=== PATIENT | male | born 1965 | race Caucasian/White ===

== ENCOUNTER 2018-08-09 06:52 | Day surgery (SDC) | payer OTHER ==
[2018-08-09] MEDS ORDERED: Morphine 4 MG/ML VIAL ONE (07:29)
[2018-08-09] MEDS ORDERED: Ondansetron PF 4 MG/2 ML Vial ONE ×2 (07:30→10:51)
[2018-08-09 07:34] LABS: #Basophils 0.1 thou/uL (0.0-0.2); #Eosinphils 0.2 thou/uL (0.0-0.7); #Lymphocytes 2.4 thou/uL (1.20-3.40); #Monocytes 0.4 thou/uL (0.11-0.59); #Neutrophils 3.6 thou/uL (1.40-6.50); %Basophils 0.8 % (0.0-1.0); %Eosinophils 2.4 % (0.0-10.0); %Lymphocytes 36.5 % (21.0-51.0); %Monocytes 5.6 % (0.0-10.0); %Neutrophils 54.6 % (42.0-75.0); Hemoglobin 16.3 g/dL (14.0-18.0); Mean Corpuscular HGB CONC 33.4 g/dL (32.0-36.0); Mean Corpuscular Hemoglobin 31.6 pg (27.0-31.0); Mean Corpuscular Volume 94.5 fL (78.0-98.0); Mean Platelet Volume 7.4 fL (7.4-10.4); Platelet Count 251 thou/uL (130-400); RBC Distribution Width 11.9 % (11.5-14.5); Red Blood Cell (RBC) Count 5.17 mill/uL (4.70-6.10); White Blood Cell (WBC) Count 6.6 thou/uL (4.8-10.8)
--- NOTE | 2018-08-09 07:50 | CT ---
CTA OF THE ABDOMEN AND PELVIS UTILIZING AORTIC DISSECTION PROTOCOL WITH 3D REFORMATTED IMAGING: INDICATION: History of abdominal pain in the paraumbilical region that began this morning and has worsened. COMPARISON: None. FINDINGS: No acute aortic stenosis, occlusion, or aneurysmal formation is demonstrated. There is mild vascular calcification involving the iliac arteries bilaterally. No definite central pulmonary embolus is ev ident. The celiac, SMA, and renal arteries are patent. 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 The MITCHEL is patent. No enlarged lymph nodes are seen within the mediastinum, hilar, or axillary regions. No suspicious pulmonary nodule, pleural effusion, or pneumothorax is evident. There is fatty infiltration of the liver. The pancreas, adrenal glands, and left kidney are normal-appearing. There is a 2.8 cm cyst within th e superior pole of the right kidney. No enlarged lymph nodes are evident. There is a paraumbilical hernia containing a loop of small ingrid l with dilatation of the small bowel and surrounding fluid in the hernia sac suspicious for changes o f strangulation. No upstream dilatation is evident within the small bowel. There is a normal append ix in the right lower quadrant of the abdomen. Unopacified colon is within normal limits. No acute osseous abnormality is evident. IMPRESSION: 1. Paraumbilical hernia containing a loop of small bowel with associated fluid in the hernia sac fatemeh picious for changes of early strangulation. No upstream dilatation is evident involving the small lilly wel to suggest obstruction. 2. No acute aortic stenosis, occlusion, or aneurysmal formation. 3. No central pulmonary embolus. 4. No acute cardiopulmonary abnormality. 5. Fatty liver. 6. Right renal cyst. POS: [facility]
[2018-08-09 07:55] LABS: ALT (SGPT) 28 U/L (8-55); AST (SGOT) 45 U/L (5-34); Albumin 4.1 g/dL (3.5-5.0); Alkaline Phosphatase 56 U/L (40-150); Anion Gap 15 mmol/L (10-20); BUN (Urea Nitrogen) 10 mg/dL (8.4-25.7); Bilirubin, Total 0.7 mg/dL (0.2-1.2); Calc. Creatinine Clearance 0 mL/min (70-130); Calcium 9.7 mg/dL (7.8-10.44); Carbon Dioxide 23 mmol/L (22-29); Chloride 103 mmol/L (98-107); Estimated GFR-MDRD 68; Globulin 3.6 g/dL (2.4-3.5); Glucose 105 mg/dL (70-105); Lipase 50 U/L (8-78); Potassium 3.8 mmol/L (3.5-5.1); Protein, Total 7.7 g/dL (6.0-8.3); Sodium 137 mmol/L (136-145)
[2018-08-09] MEDS ORDERED: Bupivacaine/Epinephrine 0.25% 30 ML VIAL ONE (08:38)
[2018-08-09] MEDS ORDERED: Ketorolac Tromethamine 30 MG/ML VIAL ONE (08:45)
[2018-08-09] MEDS ORDERED: Famotidine/PF 20 mg/2ml Vial ONE (08:45)
[2018-08-09] MEDS ORDERED: Fentanyl 100 MCG/2 ML VIAL ONE ×4 (08:45→12:57)
--- NOTE | 2018-08-09 09:00 | HP ---
HISTORY: A 52-year-old man presented to emergency department with acute onset periumbilical abdominal pain, which started at 0400 hours, associated with nonreducible periumbilical bulge. He has never experienced pain like this before. He is a retired [employer], who now rates his pain at 10/10. He denies any fevers or chills. He admits to some nausea, but no emesis. Last bowel movement and flatus were yesterday. PAST MEDICAL HISTORY: Has no previous medical problems. PAST SURGICAL HISTORY: He has no significant abdominal or chest surgeries. He has had minor surgeries to his limb including childhood tonsillectomy and adenoidectomy. SOCIAL HISTORY: He served in the in the [employer], now retired. Denies any cigarette smoking, ethanol, or illicit drug abuse. PRE-HOSPITAL MEDICATIONS: Include, 1. Clonazepam 0.5 mg p.o. p.r.n. 2. He also takes Ambien 10 mg p.o. at bedtime p.r.n. insomnia. FAMILY HISTORY: Denies any family history of diabetes mellitus, heart disease, essential hypertension, or cancer. REVIEW OF SYSTEMS: Ten-point review of systems essentially unremarkable except as stated in past medical history and chief complaint. PHYSICAL EXAMINATION: GENERAL: This reveals a 52-year-old normally developed man, who is otherwise coherent and interactive and appears stated age. The patient is alert and oriented x3. Appears to be in acute distress secondary to severe abdominal pain. VITAL SIGNS: Today include blood pressure 170/113, pulse 71, respiratory rate is 23, temperature is 97.5 degrees Fahrenheit, oxygen saturation is 99% on room air. He rates his pain 10/10. HEENT: Reveals normocephalic and atraumatic. Pupils are equal, round, reactive to light and accommodation. Extraocular muscles are intact bilaterally. No scleral icterus present. HEART: Reveals regular rate and rhythm. No murmurs or gallops auscultated. LUNGS: Clear to auscultation bilaterally. Breathing, regular and nonlabored. ABDOMEN: Soft with a 3 x 4 cm periumbilical bulge, which is exquisitely tender with light touch. He has no rebound tenderness present. Liver and spleen nonpalpable below costal margin. NEUROLOGIC: Reveals no focal deficits present. LABORATORY FINDINGS: Today includes a CBC with 6600 white blood cells, hemoglobin and hematocrit 16.3 and 48.8 respectively, and platelet count is 251,000. Metabolic profile; sodium 137, potassium 3.8, chloride is 103, bicarb is 23, BUN is 10, creatinine is 1.13, glucose 105. AST and ALT noted at 45 and 28 respectively. Total bilirubin normal at 0.7. Serum lipase is also normal at 50. DIAGNOSTIC DATA: I have personally reviewed the CT scan of the abdomen and pelvis, which is remarkable for paraumbilical hernia containing a loop of small bowel which is trapped within the hernia sac. There is associated stranding. IMPRESSION: Acute incarcerated, likely strangulated umbilical hernia with acute small-bowel obstruction. PLAN: Urgent umbilical herniorrhaphy with mesh. Above findings and plan were discussed with the patient who indicates understanding information given. I have answered his questions. The patient is informed that if the bowel is indeed strangulated and nonviable, this may necessitate a small bowel resection with primary anastomosis, which may involve a bigger incision. The patient indicates understanding information given today. I have answered his questions. Job ID: [id number]
[2018-08-09] MEDS ORDERED: ISOVUE-370 76%-LOCM 1 ML ONE (09:45)
[2018-08-09] MEDS ORDERED: Dexamethasone 20 MG/5 ML VIAL ONE (10:51)
[2018-08-09] MEDS ORDERED: Succinylcholine Chloride 20 MG/ML 10 ml SYRINGE FS ONE (10:51)
[2018-08-09] MEDS ORDERED: Rocuronium Bromide 10 MG/ML (10ML VIAL) ONE (10:51)
[2018-08-09] MEDS ORDERED: ePHEDrine 50 MG/ML VIAL ONE (10:51)
[2018-08-09] MEDS ORDERED: PROPOFOL 200 MG/20 ML VIAL ONE (10:51)
[2018-08-09] MEDS ORDERED: Glycopyrrolate 0.2 MG/ML 5 ML SYRINGE ONE (10:51)
[2018-08-09] MEDS ORDERED: Lidocaine 1% PF 5 ML VIAL ONE (10:51)
--- NOTE | 2018-08-09 13:23 | OP ---
DATE OF PROCEDURE: 08/09/2018 PREOPERATIVE DIAGNOSIS: Acute incarcerated umbilical hernia with small-bowel obstruction. POSTOPERATIVE DIAGNOSIS: Acute incarcerated umbilical hernia with small-bowel obstruction. OPERATION PERFORMED: Repair of incarcerated umbilical hernia with [address] hernia patch. ANESTHESIA: General endotracheal. ESTIMATED BLOOD LOSS: 30 mL. FLUIDS GIVEN: 1600 mL crystalloids. COUNTS: Sponge and instrument counts were verified as correct x2. COMPLICATIONS: None apparent at the time of operation. INDICATIONS FOR OPERATION: This is a 52-year-old man, who presented with acute onset of periumbilical severe abdominal pain associated with nonreducible umbilical bulge. Clinical radiographic examination was consistent with acute incarcerated umbilical hernia with acute small-bowel obstruction. The patient was brought to the operating room for hernia repair. Findings are consistent with 2.5 cm umbilical hernia defect and no evidence of small bowel strangulation as there was no hemorrhagic ascites. The incarcerated small bowel had reduced at induction. DESCRIPTION OF PROCEDURE: Informed consent was obtained from the patient and he was brought to the operating room and placed in supine position. Following general anesthesia, the abdomen was sterilely prepped and draped in usual fashion. A curvilinear infraumbilical incision was made using a 15 scalpel. The incision was carried through subcutaneous tissues, maintaining hemostasis using cautery. Incision was carried down to the level of the fascia. The umbilical stalk and hernia sac were dissected off the ely shoshone fascia. Umbilical stalk was then dissected off the hernia sac. Hernia sac was opened and peritoneal cavity was inspected. No hemorrhagic ascites was present. At this juncture, an [address] hernia patch was brought into the operative field and inserted into the peritoneal cavity, securing this circumferentially to ely shosh[place] fascia using 2-0 Prolene sutures. [place] fascia was approximated using interrupted sutures of 0 Vicryl. Subcutaneous tissue was irrigated clear with saline solution noting good hemostasis in place. The umbilical stalk was reattached to ely shoshone fascia using interrupted sutures of 3-0 Vicryl. Deep tissues approximated using interrupted sutures of 3-0 Vicryl. Skin was closed using a running stitch of 4-0 Monocryl suture in subcuticular fashion. Dermabond was applied over incisional closure. The patient tolerated the operation without any apparent complication and was returned to recovery room in satisfactory condition. Job ID: [id number]
[2018-08-09] MEDS ORDERED: HYDROcodone/Acetaminophen 5/325 mg Tablet ONE (15:15)
== END 2018-08-09 16:45 | disposition home or self-care (01) ==
LOC: ERS 06:52 → SDC/OP 08:27
PROVIDERS: ATTEND Surgery
PROC: 0WUF0JZ Supplement Abdominal Wall with Synthetic Substitute, Open Approach (ICD-10-PCS; principal; 2018-08-09)
DX: K42.0 Umbilical hernia with obstruction, without gangrene (principal); G47.00 Insomnia, unspecified
CPT/HCPCS: 71275; 80053; 83690; 85025; 93005; 96361; 96374; 96375; C1781; J0131; J1100; J1885; J2001; J2270; J2405; J2704; J3010; J3490; Q9966; S0028

== ENCOUNTER 2019-02-13 09:46 | Observation (INO) | payer OTHER ==
[2019-02-13 10:15] LABS: #Basophils 0.1 thou/uL (0.0-0.2); #Eosinphils 0.1 thou/uL (0.0-0.7); #Lymphocytes 3.1 thou/uL (1.20-3.40); #Monocytes 0.6 thou/uL (0.11-0.59); #Neutrophils 3.1 thou/uL (1.40-6.50); %Basophils 1.4 % (0.0-1.0); %Eosinophils 2.1 % (0.0-10.0); %Lymphocytes 44.2 % (21.0-51.0); %Monocytes 8.2 % (0.0-10.0); %Neutrophils 44.1 % (42.0-75.0); Hemoglobin 16.4 g/dL (14.0-18.0); Mean Corpuscular HGB CONC 34.7 g/dL (32.0-36.0); Mean Corpuscular Hemoglobin 31.9 pg (27.0-31.0); Mean Platelet Volume 7.7 fL (7.4-10.4); Platelet Count 234 thou/uL (130-400); RBC Distribution Width 12.4 % (11.5-14.5); Red Blood Cell (RBC) Count 5.13 mill/uL (4.70-6.10)
--- NOTE | 2019-02-13 10:23 | RAD ---
EXAM: Chest PA and lateral: HISTORY: Chest pain, midsternal COMPARISON: None FINDINGS: Heart size:Within normal limits. Lungs:Clear of acute process. No confluent pneumonia, overt edema, pleural effusion, or other acute process. IMPRESSION: No significant acute intrathoracic disease.
[2019-02-13 10:38] LABS: ALT (SGPT) 25 U/L (8-55); AST (SGOT) 52 U/L (5-34); Albumin 4.7 g/dL (3.5-5.0); Alkaline Phosphatase 55 U/L (40-150); Anion Gap 17 mmol/L (10-20); BUN (Urea Nitrogen) 16 mg/dL (8.4-25.7); CK (CPK) 312 U/L (30-200); Calc. Creatinine Clearance 0 mL/min (70-130); Calcium 10.2 mg/dL (7.8-10.44); Carbon Dioxide 22 mmol/L (22-29); Chloride 103 mmol/L (98-107); Estimated GFR-MDRD 71; Globulin 3.7 g/dL (2.4-3.5); Glucose 73 mg/dL (70-105); Potassium 3.6 mmol/L (3.5-5.1); Protein, Total 8.4 g/dL (6.0-8.3); Sodium 138 mmol/L (136-145)
[2019-02-13] MEDS ORDERED: Aspirin Chewable 81 MG TAB ONE (10:46)
[2019-02-13 14:01] LABS: Troponin I Less than 0.010 ng/mL (< 0.028)
[2019-02-13] MEDS ORDERED: Ondansetron PF 4 MG/2 ML Vial IVP PRN (14:36)
[2019-02-13] MEDS ORDERED: Ondansetron ODT 4 MG TAB SL PRN (14:36)
[2019-02-13 14:56] VITALS: BMI 26.2
[2019-02-13] MEDS ORDERED: Acetaminophen 325 MG TAB PO PRN (16:39)
[2019-02-13] MEDS ORDERED: Senokot S 8.6-50 MG TAB PO PRN (16:39)
[2019-02-13] MEDS ORDERED: HYDROcodone/Acetaminophen 5/325 mg Tablet PO PRN (16:39)
[2019-02-13 16:42] LABS: Troponin I Less than 0.010 ng/mL (< 0.028)
--- NOTE | 2019-02-13 18:14 | HP ---
PRIMARY CARE PHYSICIAN: Dr. Jeffers. REASON FOR ADMISSION: Chest pain. HISTORY OF PRESENT ILLNESS: Mr. Jarrett is a 53-year-old man, who reported to the emergency room today for chest pain while at work today, reports that he was walking out of the meeting when he started having substernal chest pain that lasted a couple of minutes and then spontaneously went away. He had some shortness of breath with it, but denied any nausea or diaphoresis. The patient states he was a little dizzy, lightheaded during the incident. The patient denies any cough, fever, urinary complaints, or lower leg edema. Denies any numbness or tingling. He also denies any family history of any cardiac or stroke illnesses. The patient states he has been outside working in the heat over the last several days. Evaluation in the ER, the EKG, beats per minute 58, incomplete right bundle-branch block, ST segments and T-waves were normal. Troponin x2 undetectable. Lab work mostly unremarkable did have an AST of 52, CK of 312, globulin 3.7. Chest x-ray was also negative for any acute findings. The patient admitted to the observation unit for further risk stratification. REVIEW OF SYSTEMS: Denied any nausea. Denied any radiation. Denied diaphoresis to me, although he did report some to the ER. The patient reported some chest pain. PAST MEDICAL HISTORY: Pertinent for hypertension and hyperlipidemia. Reports that Dr. Jeffers has given a medicine and wants to give a medicine for both of those, but the patient has so far refused. PAST SURGICAL HISTORY: Hernia repair. PSYCHIATRIC HISTORY: None. SOCIAL HISTORY: Lives with his family. Denies any alcohol or drug use. Has no smoking history. ALLERGIES: NONE. CURRENT MEDICATIONS: Takes; 1. Ambien 10 mg p.o. once a day at bedtime. 2. Clonazepam 0.5 mg one tablet as needed. PHYSICAL EXAMINATION: VITAL SIGNS: Blood pressure 136/80, pulse is 63, respirations are 16, temperature is 97.8, PO2 saturations are 99% on room air. CONSTITUTIONAL: The patient is alert and oriented to person, place, and time. He appears nontoxic. HEENT: Head is atraumatic and normocephalic. Eyes, pupils are equally round and reactive to light. Extraocular muscles are intact. ENT, mouth exam is normal. Teeth with poor dentition. Mucous membranes are moist. NECK: Normal range of motion. Trachea is midline. RESPIRATORY/CHEST: Breath sounds are clear. Chest expansion is equal. CARDIOVASCULAR: Regular heart rate and rhythm. Heart sounds are normal. ABDOMEN: Bowel sounds are heard. There is no tenderness on palpation. BACK: Normal range of motion. No tenderness. EXTREMITIES: Upper extremity; normal inspection, normal range of motion. Motor strength is normal. Sensation intact. Radial pulses are normal. Lower extremity; normal inspection, normal range of motion. Sensation is intact. Pedal pulses normal. NEUROLOGIC: The patient is oriented to person, place, and time. Speech is normal. SKIN: Warm, dry, and normal in color. PSYCH: Has a normal affect. PLAN AND ASSESSMENT: 1. Chest pain. The patient will be admitted to the hospital, given an aspirin 324. Order a stress test for further risk stratification. We will order lipids and TSH in the morning. We will recheck labs. 2. History of hypertension, history of noncompliance. We will trend. 3. Deep venous thrombosis and gastrointestinal prophylaxis have been started. Case discussed with Dr. La, who agrees with the plan. Job ID: [id number]
[2019-02-13] MEDS: Famotidine 20 MG TAB PO SCH (19:52)
[2019-02-13] MEDS ORDERED: Zolpidem Tartrate 5 MG TAB PO SCH (21:00)
[2019-02-13] MEDS ORDERED: clonazePAM 0.5 MG TAB PO SCH (21:00)
[2019-02-14 05:09] LABS: #Basophils 0.1 thou/uL (0.0-0.2); #Eosinphils 0.2 thou/uL (0.0-0.7); #Lymphocytes 2.5 thou/uL (1.20-3.40); #Monocytes 0.6 thou/uL (0.11-0.59); #Neutrophils 2.3 thou/uL (1.40-6.50); %Basophils 1.2 % (0.0-1.0); %Eosinophils 4.3 % (0.0-10.0); %Lymphocytes 43.7 % (21.0-51.0); %Monocytes 9.9 % (0.0-10.0); Hemoglobin 15.4 g/dL (14.0-18.0); Mean Corpuscular HGB CONC 33.9 g/dL (32.0-36.0); Mean Corpuscular Hemoglobin 31.7 pg (27.0-31.0); Mean Corpuscular Volume 93.3 fL (78.0-98.0); Mean Platelet Volume 7.9 fL (7.4-10.4); Platelet Count 210 thou/uL (130-400); RBC Distribution Width 12.4 % (11.5-14.5); Red Blood Cell (RBC) Count 4.85 mill/uL (4.70-6.10); White Blood Cell (WBC) Count 5.7 thou/uL (4.8-10.8)
[2019-02-14 05:32] LABS: ALT (SGPT) 18 U/L (8-55); AST (SGOT) 37 U/L (5-34); Albumin 3.7 g/dL (3.5-5.0); Alkaline Phosphatase 47 U/L (40-150); Anion Gap 9 mmol/L (10-20); BUN (Urea Nitrogen) 11 mg/dL (8.4-25.7); Bilirubin, Total 0.5 mg/dL (0.2-1.2); Calc. Creatinine Clearance 113 mL/min (70-130); Carbon Dioxide 25 mmol/L (22-29); Cardiac Risk 3.2 (Less than 4.5); Chloride 109 mmol/L (98-107); Cholesterol 203 mg/dl (< 200 Desired); Estimated GFR-MDRD 89; Globulin 2.9 g/dL (2.4-3.5); Glucose 105 mg/dL (70-105); HDL Cholesterol 63 mg/dL (>60 Neg Risk); LDL Cholesterol, Calculated 130 mg/dL; Potassium 3.5 mmol/L (3.5-5.1); Protein, Total 6.6 g/dL (6.0-8.3); Sodium 139 mmol/L (136-145); Triglycerides 51 mg/dL (Less than 150)
[2019-02-14] MEDS: Famotidine 20 MG TAB PO SCH (08:55)
[2019-02-14] MEDS ORDERED: Enoxaparin Sodium 40 MG/0.4 ML SYRINGE SC SCH (09:00)
--- NOTE | 2019-02-14 12:50 | NM ---
NM Cardiac Stress W EF WF HISTORY: Chest pain COMPARISON: None. FINDINGS: Examination is performed using 29.1 mCi of 90 9M technetium sestamibi on the stress and 32 mCi on the resting images. There is a normal distribution of radiopharmaceutical without signs of ischemia or scar. Wall motion: There is symmetric contractility to the ventricle. The left ventricular ejection fraction is 60%. IMPRESSION: Unremarkable myocardial perfusion scan.
[2019-02-14 12:59] VITALS: BP 111/70; TEMP 98
--- NOTE | 2019-02-14 16:45 | DIS ---
DATE OF ADMISSION: 02/13/2019 DATE OF DISCHARGE: 02/14/2019 DISCHARGE DISPOSITION: Home. FOLLOWUP: Follow up with primary care physician, Dr. Jeffers in 1 week. ALLERGIES: NO KNOWN DRUG ALLERGIES. DISCHARGE MEDICATION: Same as admission medication. The patient was seen and examined on the day of discharge. Denies any new complaints. No chest pain, shortness of breath, or palpitations reported. SIGNIFICANT LABS: TSH 1.06. Fasting lipid showed cholesterol of 203, LDL 130, HDL 63, with triglycerides 51. LFTs showed slightly elevated AST of 52 on admission that improved to 37 at discharge. BRIEF HOSPITAL COURSE: The patient is a 53-year-old male, who presented to the emergency room with chest discomfort. Please refer to the history and physical for further details. The patient was admitted to the telemetry unit with a diagnosis of chest discomfort, rule out acute coronary syndrome. His serial troponins were negative. Due to intermediate probability for coronary artery disease, he underwent a Cardiolite stress test, which was negative for reversible ischemia. There were no wall motion abnormalities. Ejection fraction was 60%. He is chest pain free and appears stable for discharge. FINAL DIAGNOSES: 1. Chest discomfort. Acute coronary syndrome ruled out. 2. Anxiety. 3. Diet-controlled hypertension. 4. Hyperlipidemia, diet controlled. His total cholesterol was 203 with LDL of 130 with HDL of 63. He declined statins. 5. Chronic kidney disease, stage 2. PLAN: Plan of care was discussed with the patient in detail. He stated understanding. Job ID: [id number]
[2019-02-14] MEDS ORDERED: Regadenoson 0.4 MG/5 ML SYRINGE ONE (16:52)
--- NOTE | 2019-02-16 14:56 | EKG ---
Test Reason : Blood Pressure : / mmHG Vent. Rate : 058 BPM Atrial Rate : 058 BPM P-R Int : 190 ms QRS Dur : 096 ms QT Int : 458 ms P-R-T Axes : 039 -28 036 degrees QTc Int : 449 ms Sinus bradycardia Incomplete right bundle branch block Borderline ECG Confirmed by JUAN DIEGO ENGEL M.D. ([id number]), editor index SANDRA CEJA ([id number]) on 02/16/2019 2:56:04 PM Referred By: Confirmed By:JUAN DIEGO ENGEL M.D.
== END 2019-02-14 14:13 | disposition home or self-care (01) ==
LOC: ERS 09:46 → 2SW 14:35
PROVIDERS: ADMIT Internal Medicine; ATTEND Internal Medicine
DX: R07.89 Other chest pain (principal); E78.5 Hyperlipidemia, unspecified; F41.9 Anxiety disorder, unspecified; I12.9 Hypertensive chronic kidney disease with stage 1 through stage 4 chronic kidney disease, or unspecified chronic kidney disease; N18.2 Chronic kidney disease, stage 2 (mild); Z79.899 Other long term (current) drug therapy; Z91.19 Patient's noncompliance with other medical treatment and regimen
CPT/HCPCS: 36415; 71046; 78452; 80053; 80061; 82550; 83880; 84443; 84484; 85025; 93005; 93017; 96360; 96361; A9500; G0378; J1650; J2785

== ENCOUNTER 2020-03-08 16:14 | Inpatient (IN) | payer OTHER ==
[2020-03-08] MEDS ORDERED: Morphine 4 MG/ML VIAL ONE (16:24)
[2020-03-08] MEDS ORDERED: Ondansetron PF 4 MG/2 ML Vial ONE (16:24)
[2020-03-08] MEDS ORDERED: Boostrix 0.5 ML VIAL ONE ×2 (16:29→16:30)
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
[2020-03-08 17:59] LABS: #Basophils 0.1 thou/uL (0.0-0.2); #Eosinphils 0.1 thou/uL (0.0-0.7); #Lymphocytes 2.9 thou/uL (1.20-3.40); #Monocytes 1.1 thou/uL (0.11-0.59); %Basophils 0.4 % (0.0-1.0); %Eosinophils 0.9 % (0.0-10.0); %Lymphocytes 23.5 % (21.0-51.0); %Monocytes 9.2 % (0.0-10.0); Hemoglobin 15.6 g/dL (14.0-18.0); Mean Corpuscular HGB CONC 33.4 g/dL (32.0-36.0); Mean Corpuscular Hemoglobin 31.6 pg (27.0-31.0); Mean Corpuscular Volume 94.7 fL (78.0-98.0); Mean Platelet Volume 8.5 fL (7.4-10.4); Platelet Count 289 thou/uL (130-400); RBC Distribution Width 12.8 % (11.5-14.5); Red Blood Cell (RBC) Count 4.94 mill/uL (4.70-6.10); White Blood Cell (WBC) Count 12.1 thou/uL (4.8-10.8)
[2020-03-08 18:05] LABS: INR-International Normal Ratio 0.9; Prothrombin Time 12.9 sec (12.0-14.7)
[2020-03-08 18:30] LABS: ALT (SGPT) 27 U/L (8-55); AST (SGOT) 53 U/L (5-34); Albumin 4.1 g/dL (3.5-5.0); Alkaline Phosphatase 46 U/L (40-110); Anion Gap 13 mmol/L (10-20); BUN (Urea Nitrogen) 12 mg/dL (8.4-25.7); Bilirubin, Total 0.4 mg/dL (0.2-1.2); Calc. Creatinine Clearance 0 mL/min (70-130); Calcium 8.9 mg/dL (7.8-10.44); Carbon Dioxide 23 mmol/L (22-29); Chloride 107 mmol/L (98-107); Estimated GFR-MDRD 81; Globulin 3.2 g/dL (2.4-3.5); Glucose 93 mg/dL (70-105); Potassium 3.6 mmol/L (3.5-5.1); Protein, Total 7.3 g/dL (6.0-8.3); Sodium 139 mmol/L (136-145)
[2020-03-08] MEDS ORDERED: traMADol HCl 50 MG TAB ONE (19:21)
[2020-03-08] MEDS ORDERED: Dextrose 5% in Water 1,000 ML IV PRN (19:41)
[2020-03-08] MEDS ORDERED: Morphine 4 MG/ML VIAL SLOW IVP PRN (19:41)
[2020-03-08] MEDS ORDERED: Dextrose 50% Abboject 50 ML SYRINGE SLOW IVP PRN (19:41)
[2020-03-08] MEDS ORDERED: Morphine 2 MG/ML VIAL SLOW IVP PRN (19:41)
[2020-03-08] MEDS ORDERED: Ondansetron PF 4 MG/2 ML Vial IVP PRN (19:41)
[2020-03-08] MEDS ORDERED: Cyclobenzaprine 10 MG TAB PO PRN (19:46)
[2020-03-08] MEDS ORDERED: Ibuprofen 600 MG TAB PO PRN (19:46)
[2020-03-08 20:19] LABS: Phosphorus 3.4 mg/dL (2.3-4.7)
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
[2020-03-08 22:46] VITALS: BMI 31.4
[2020-03-08] MEDS: Sodium Chloride 0.9% 1,000 ML IV SCH (23:01)
[2020-03-08] MEDS: Senokot S 8.6-50 MG TAB PO SCH (23:01)
[2020-03-08] MEDS: Famotidine 20 MG TAB PO SCH (23:01)
[2020-03-08] MEDS: Zolpidem Tartrate 5 MG TAB PO SCH (23:01)
[2020-03-08] MEDS: Acetaminophen 500 MG TAB PO SCH (23:03)
[2020-03-08] MEDS: traMADol HCl 50 MG TAB PO SCH (23:04)
[2020-03-09] MEDS: Ketorolac Tromethamine 30 MG/ML VIAL IVP SCH ×5 (01:12→23:08)
[2020-03-09] MEDS: Acetaminophen 500 MG TAB PO SCH ×4 (01:13→20:04)
[2020-03-09] MEDS: traMADol HCl 50 MG TAB PO SCH ×4 (01:13→20:04)
[2020-03-09] MEDS: Sodium Chloride 0.9% 1,000 ML IV SCH ×3 (04:07→21:01)
[2020-03-09 05:20] LABS: Mean Corpuscular HGB CONC 33.7 g/dL (32.0-36.0); Mean Corpuscular Hemoglobin 32.1 pg (27.0-31.0); Mean Corpuscular Volume 95.4 fL (78.0-98.0); Mean Platelet Volume 7.6 fL (7.4-10.4); Platelet Count 216 thou/uL (130-400); RBC Distribution Width 12.9 % (11.5-14.5); Red Blood Cell (RBC) Count 4.37 mill/uL (4.70-6.10); White Blood Cell (WBC) Count 7.9 thou/uL (4.8-10.8)
[2020-03-09 06:01] LABS: Anion Gap 12 mmol/L (10-20); BUN (Urea Nitrogen) 11 mg/dL (8.4-25.7); Calc. Creatinine Clearance 131 mL/min (70-130); Calcium 8.1 mg/dL (7.8-10.44); Carbon Dioxide 24 mmol/L (22-29); Chloride 107 mmol/L (98-107); Estimated GFR-MDRD Greater than 90; Glucose 92 mg/dL (70-105); Potassium 3.9 mmol/L (3.5-5.1); Sodium 139 mmol/L (136-145)
[2020-03-09 06:04] LABS: Phosphorus 4.7 mg/dL (2.3-4.7)
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
[2020-03-09] MEDS ORDERED: FLU VACC QS2020-21(6MOS UP)/PF 60 MCG/0.5 ML SYRINGE IM ONE (09:00)
--- NOTE | 2020-03-09 09:14 | CT ---
CT OF THE LEFT KNEE WITHOUT CONTRAST: INDICATION: History of left knee fracture. COMPARISON: Left knee radiograph dated 03/08/2020. FINDINGS: There is a heavily comminuted impacted tibial plateau fracture involving the posterior and medial asp ect of the lateral tibial plateau. There is approximately 7 to 8 mm of articular surface depression involving the posteromedial aspect of the lateral tibial plateau on image 45 of series 702. There is heavy comminution extending into the tibial spines. There is an obliquely oriented component extend ing through the medial metaphysis of the proximal tibia out through the cortical surface. Small grazyna inal osteophytes are seen affecting all major compartments. There is a moderate-sized lipohemarthros is. No additional fracture is evident. IMPRESSION: 1. Heavily comminuted lateral tibial plateau fracture with an obliquely oriented medial metaphyseal component. There is approximately 7-8 mm of articular surface depression involving the comminuted ar ticular surface component of the posteromedial tibial plateau. There is heavy comminution involving the tibial spines. POS: [facility]
[2020-03-09] MEDS ORDERED: CEFAZOLIN 2 GM in Premix Bag 1 BAG IVPB SCH (10:30)
[2020-03-09] MEDS ORDERED: Ondansetron PF 4 MG/2 ML Vial ONE (10:57)
[2020-03-09] MEDS ORDERED: Dexamethasone 20 MG/5 ML VIAL ONE (10:57)
[2020-03-09] MEDS ORDERED: Bupivacaine HCl 0.5%/Epinephrine 1:200,000/PF 30 ml Vial ONE (10:57)
[2020-03-09] MEDS ORDERED: PROPOFOL 200 MG/20 ML VIAL ONE (10:57)
[2020-03-09] MEDS ORDERED: Lidocaine 1% PF 5 ML VIAL ONE (10:57)
[2020-03-09] MEDS: Famotidine 20 MG TAB PO SCH ×2 (11:00→20:04)
[2020-03-09] MEDS: Senokot S 8.6-50 MG TAB PO SCH ×2 (11:00→20:04)
[2020-03-09] MEDS: Polyethylene Glycol 3350 17 GM Packet PO SCH (11:00)
[2020-03-09] MEDS ORDERED: Midazolam HCl 2 mg/2 ml Vial ONE (11:51)
[2020-03-09] MEDS ORDERED: EPINEPHrine 1 MG/ML AMP ONE (11:51)
[2020-03-09] MEDS ORDERED: Fentanyl 100 MCG/2 ML VIAL ONE ×5 (11:51→15:52)
[2020-03-09 14:02] LABS: SARS-CoV-2 MS2 Positive; SARS-CoV-2 N Gene Negative; SARS-CoV-2 S Gene Negative; SARS-CoV-2 by NAA Not Detected (NotDetected); SARS-CoV-2 orf1ab Negative
[2020-03-09] MEDS ORDERED: Promethazine HCl 25 MG/ML VIAL IM PRN (14:33)
[2020-03-09] MEDS ORDERED: Ondansetron HCl/PF 4 MG/2 ML Vial IVP PRN (14:33)
[2020-03-09] MEDS ORDERED: Promethazine HCl 25 MG/ML VIAL SLOW IVP PRN (14:33)
--- NOTE | 2020-03-09 14:40 | RAD ---
LEFT TIBIA AND FIBULA 2 VIEWS Date: 03/09/2020 HISTORY: Intraoperative films. FINDINGS: These show open reduction and internal fixation of a lateral tibial plateau fracture with plate and s crews. IMPRESSION: Fixation of lateral tibial plateau fracture. POS: [facility]
[2020-03-09] MEDS ORDERED: Ketorolac Tromethamine 30 MG/ML VIAL ONE (15:13)
[2020-03-09] MEDS ORDERED: HYDROmorphone 2 MG/ML VIAL ONE (15:13)
[2020-03-09] MEDS: CEFAZOLIN 2 GM in Premix Bag 1 BAG IVPB SCH (20:08)
[2020-03-09] MEDS: traMADol HCl 50 MG TAB PO PRN (21:00)
[2020-03-09] MEDS: Zolpidem Tartrate 5 MG TAB PO SCH (23:07)
[2020-03-10] MEDS: Acetaminophen 500 MG TAB PO SCH ×2 (01:48→08:37)
[2020-03-10] MEDS: traMADol HCl 50 MG TAB PO SCH ×2 (01:48→08:34)
[2020-03-10] MEDS: CEFAZOLIN 2 GM in Premix Bag 1 BAG IVPB SCH ×2 (03:53→12:29)
[2020-03-10] MEDS: Sodium Chloride 0.9% 1,000 ML IV SCH (04:38)
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
[2020-03-10 05:40] LABS: #Lymphocytes 1.5 thou/uL (1.20-3.40); #Monocytes 1.1 thou/uL (0.11-0.59); #Neutrophils 7.8 thou/uL (1.40-6.50); %Basophils 0.2 % (0.0-1.0); %Eosinophils 0.2 % (0.0-10.0); %Lymphocytes 14.7 % (21.0-51.0); %Monocytes 10.5 % (0.0-10.0); %Neutrophils 74.4 % (42.0-75.0); Hemoglobin 13.1 g/dL (14.0-18.0); Mean Corpuscular HGB CONC 33.2 g/dL (32.0-36.0); Mean Corpuscular Volume 96.3 fL (78.0-98.0); Mean Platelet Volume 8.2 fL (7.4-10.4); Platelet Count 219 thou/uL (130-400); RBC Distribution Width 12.7 % (11.5-14.5); White Blood Cell (WBC) Count 10.4 thou/uL (4.8-10.8)
[2020-03-10 06:16] LABS: Anion Gap 11 mmol/L (10-20); BUN (Urea Nitrogen) 10 mg/dL (8.4-25.7); Calc. Creatinine Clearance 119 mL/min (70-130); Calcium 8.3 mg/dL (7.8-10.44); Carbon Dioxide 27 mmol/L (22-29); Chloride 105 mmol/L (98-107); Estimated GFR-MDRD 82; Glucose 110 mg/dL (70-105); Phosphorus 2.9 mg/dL (2.3-4.7); Potassium 4.7 mmol/L (3.5-5.1); Sodium 138 mmol/L (136-145)
[2020-03-10] MEDS ORDERED: PHOS-NAK 1 PKT PACK PO SCH (07:00)
[2020-03-10] MEDS ORDERED: Ibuprofen 200 MG TAB PO SCH ×2 (07:00→14:00)
[2020-03-10] MEDS: Famotidine 20 MG TAB PO SCH (08:33)
[2020-03-10] MEDS: Senokot S 8.6-50 MG TAB PO SCH (08:33)
[2020-03-10] MEDS: traMADol HCl 50 MG TAB PO PRN (08:36)
[2020-03-10] MEDS ORDERED: Enoxaparin Sodium 40 MG/0.4 ML SYRINGE SC SCH (09:00)
[2020-03-10] MEDS ORDERED: Acetaminophen/Codeine 30-300mg Tablet PO PRN ×2 (10:22)
[2020-03-10] MEDS: Polyethylene Glycol 3350 17 GM Packet PO SCH (10:46)
[2020-03-10] MEDS ORDERED: Acetaminophen 325 MG TAB PO SCH (12:00)
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
[2020-03-10 15:31] VITALS: BP 121/75; TEMP 97.8
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
== END 2020-03-10 16:30 | disposition home or self-care (01) | DRG 494 ==
LOC: ERS 16:14 → SURG A 21:12
PROVIDERS: ADMIT Surgery; ATTEND Surgery
PROC: 0QSH04Z Reposition Left Tibia with Internal Fixation Device, Open Approach (ICD-10-PCS; principal; 2020-03-09)
DX: S82.122A Displaced fracture of lateral condyle of left tibia, initial encounter for closed fracture (principal); Z20.828 Contact with and (suspected) exposure to other viral communicable diseases; G47.00 Insomnia, unspecified; T14.8XXA Other injury of unspecified body region, initial encounter; V29.88XA Motorcycle rider (driver) (passenger) injured in other specified transport accidents, initial encounter; Z79.899 Other long term (current) drug therapy
CPT/HCPCS: 36415; 36556; 70450; 71045; 72125; 72170; 76000; 80048; 80053; 83735; 84100; 85025; 85027; 85610; 86850; 86900; 86901; 87635; 90471; 90662; 90715; 93005; 96365; 96366; C1713; G0008; J0171; J0690; J1100; J1170; J1650; J1885; J2250; J2270; J2405; J2704; J3010; J7030; U0003

== ENCOUNTER 2020-12-08 09:15 | Day surgery (SDC) | payer OTHER ==
[2020-12-04 10:20] VITALS: BMI 31.0
[2020-12-08] MEDS ORDERED: Bupivacaine PF 0.5% 30 ML VIAL ONE (11:47)
[2020-12-08] MEDS ORDERED: Fentanyl 100 MCG/2 ML VIAL ONE ×3 (12:19→14:47)
[2020-12-08] MEDS ORDERED: Glycopyrrolate 0.2 MG/ML 5 ML SYRINGE ONE (12:46)
[2020-12-08] MEDS ORDERED: PROPOFOL 200 MG/20 ML VIAL ONE (12:46)
[2020-12-08] MEDS ORDERED: ePHEDrine Sulfate 50 MG/10 ML VIAL ONE (12:46)
[2020-12-08] MEDS ORDERED: Lidocaine 1% PF 5 ML VIAL ONE (12:46)
[2020-12-08] MEDS ORDERED: Dexamethasone 20 MG/5 ML VIAL ONE (12:46)
[2020-12-08] MEDS ORDERED: Ondansetron PF 4 MG/2 ML Vial ONE (12:46)
[2020-12-08] MEDS ORDERED: Ketorolac Tromethamine 30 MG/ML VIAL ONE (14:30)
[2020-12-08] MEDS ORDERED: HYDROmorphone 0.5 MG/0.5 ML SYRINGE ONE (14:30)
[2020-12-08] MEDS ORDERED: HYDROcodone/Acetaminophen 5/325 mg Tablet ONE (14:56)
== END 2020-12-08 17:20 | disposition home or self-care (01) ==
LOC: SDC 09:15
PROVIDERS: ATTEND Orthopaedic Surgery
PROC: 0QPH04Z Removal of Internal Fixation Device from Left Tibia, Open Approach (ICD-10-PCS; principal; 2020-12-08)
DX: S82.142D Displaced bicondylar fracture of left tibia, subsequent encounter for closed fracture with routine healing (principal); N18.9 Chronic kidney disease, unspecified; E78.5 Hyperlipidemia, unspecified; Z79.899 Other long term (current) drug therapy; Z98.890 Other specified postprocedural states; V29.9XXD Motorcycle rider (driver) (passenger) injured in unspecified traffic accident, subsequent encounter
CPT/HCPCS: 76000; J0690; J1100; J1170; J1885; J2405; J2704; J3010; S0020

== ENCOUNTER 2022-09-23 11:31 | Emergency (ER) | payer OTHER ==
[2022-09-23] MEDS ORDERED: CEFAZOLIN 2 GM VIAL ONE (11:42)
[2022-09-23] MEDS ORDERED: Morphine 4 MG/ML VIAL ONE ×3 (11:42→14:35)
[2022-09-23] MEDS ORDERED: Ondansetron PF 4 MG/2 ML Vial ONE (11:52)
[2022-09-23 11:56] LABS: #Basophils 0.1 thou/uL (0.0-0.2); #Eosinphils 0.4 thou/uL (0.0-0.7); #Lymphocytes 3.8 thou/uL (1.20-3.40); #Monocytes 0.6 thou/uL (0.11-0.59); #Neutrophils 3.7 thou/uL (1.40-6.50); %Basophils 1.2 % (0.0-1.0); %Eosinophils 4.7 % (0.0-10.0); %Lymphocytes 44.5 % (21.0-51.0); %Monocytes 6.7 % (0.0-10.0); Hemoglobin 16.5 g/dL (14.0-18.0); Mean Corpuscular HGB CONC 34.6 g/dL (32.0-36.0); Mean Corpuscular Hemoglobin 32.5 pg (27.0-31.0); Mean Corpuscular Volume 94.1 fl (78.0-98.0); Mean Platelet Volume 8.4 fL (7.4-10.4); Platelet Count 248 10x3/uL (130-400); RBC Distribution Width 12.6 % (11.5-14.5); Red Blood Cell (RBC) Count 5.07 mill/uL (4.70-6.10); White Blood Cell (WBC) Count 8.5 10x3/uL (4.8-10.8)
[2022-09-23 12:08] LABS: INR-International Normal Ratio 0.9; PTT 24.3 sec (22.9-36.1); Prothrombin Time 12.4 sec (12.0-14.7)
[2022-09-23 12:17] LABS: ALT (SGPT) 27 U/L (8-55); AST (SGOT) 53 U/L (5-34); Albumin 4.6 g/dL (3.5-5.0); Alkaline Phosphatase 60 U/L (40-110); Anion Gap 17 mmol/L (10-20); BUN (Urea Nitrogen) 9 mg/dL (8.4-25.7); Bilirubin, Total 0.5 mg/dL (0.2-1.2); CK (CPK) 175 U/L (30-200); Calc. Creatinine Clearance 0 mL/min (70-130); Calcium 10.1 mg/dL (7.8-10.44); Carbon Dioxide 22 mmol/L (22-29); Chloride 106 mmol/L (98-107); Estimated GFR 68; Glucose 105 mg/dL (70-105); Potassium 3.7 mmol/L (3.5-5.1); Protein, Total 8.6 g/dL (6.0-8.3); Sodium 141 mmol/L (136-145)
== END 2022-09-23 15:48 | disposition short-term general hospital (02) ==
LOC: ERS 11:31
DX: S62.521A Displaced fracture of distal phalanx of right thumb, initial encounter for closed fracture (principal); W22.8XXA Striking against or struck by other objects, initial encounter
CPT/HCPCS: 71045; 80053; 82550; 85025; 85610; 85730; 86850; 86900; 86901; 93005; 96365; 96375; 96376; J2270; J2405

== ENCOUNTER 2023-07-25 14:24 | Outpatient (CLI) | payer OTHER | END 2023-07-25 14:25 | disposition home or self-care (01) | LOC: BICRAD 14:24 | PROVIDERS: ATTEND Family Medicine | DX: J06.9 Acute upper respiratory infection, unspecified (principal) | CPT/HCPCS: 71046 ==